=== PATIENT | male | born 1985 | race Caucasian/White ===

== ENCOUNTER 2020-07-24 07:18 | Emergency (ER) | payer OTHER ==
[2020-07-24 07:23] VITALS: BP 143/92; PULSE 88; RESP 18; TEMP 98
[2020-07-24] MEDS ORDERED: LIDOCAINE 1% INJ 10MG/ML (20 ML MDV) SQ ONE (07:28)
[2020-07-24] MEDS ORDERED: DIPH,PERTUS(ACELL)TETVAC-LF 0.5 ML VIAL IM ONE (07:45)
[2020-07-24] MEDS ORDERED: LIDOCAINE 1%-EPI 1:100,000 20 ML VIAL SQ STA (07:45)
--- NOTE | 2020-07-24 07:48 | ED ---
General Adult HPI - General Chief complaint: Wound/Laceration Stated complaint: [facility], arm injury Time Seen by Provider: 07/24/20 07:26 Source: patient, RN notes reviewed Mode of arrival: ambulatory Limitations: no limitations - History of Present Illness Initial comments: 35-year-old male presents to the emergency room for chief amenable laceration noted to the left inner forearm. Patient reports that he was trying to shave (almost of metal at work with a razor blade when he cut his arm. Patient denies any pulsatile bleeding. Patient denies any numbness or tingling in the left arm. Denies any difficulty moving his left arm. Patient states tetanus is likely not up-to-date.Patient has no other complaints at this time including shortness of breath, chest pain, abdominal pain, nausea or vomiting, headache, or visual changes. - Related Data Allergies Allergy/AdvReac Type Severity Reaction Status Date / Time Penicillins Allergy Unknown Verified 07/24/20 07:23 Review of Systems ROS Statement: Those systems with pertinent positive or pertinent negative responses have been documented in the HPI. ROS Other: All systems not noted in ROS Statement are negative. Past Medical History Past Medical History: No Reported History History of Any Multi-Drug Resistant Organisms: None Reported Past Surgical History: No Surgical Hx Reported Past Psychological History: No Psychological Hx Reported Smoking Status: Never smoker Past Alcohol Use History: Occasional Past Drug Use History: None Reported General Exam Limitations: no limitations General appearance: alert, in no apparent distress Head exam: Present: atraumatic, normocephalic, normal inspection Eye exam: Present: normal appearance, PERRL, EOMI. Absent: scleral icterus, conjunctival injection, periorbital swelling ENT exam: Present: normal exam, mucous membranes moist Neck exam: Present: normal inspection, full ROM. Absent: tenderness, meningismus, lymphadenopathy Respiratory exam: Present: normal lung sounds bilaterally. Absent: respiratory distress, wheezes, rales, rhonchi, stridor Cardiovascular Exam: Present: regular rate, normal rhythm, normal heart sounds. Absent: systolic murmur, diastolic murmur, rubs, gallop, clicks Extremities exam: Present: full ROM (Full range of motion noted throughout the left hand.), normal capillary refill (Capillary refill less than 2 seconds in the left upper extremity. Radial pulse 2+.), other (Patient has a 1.5 cm laceration noted to the mid inner forearm.) Course Vital Signs 07/24/20 07:20 Temperature 98.0 F Pulse Rate 88 Respiratory 18 Rate Blood Pressure 143/92 O2 Sat by Pulse 100 Oximetry Procedures - Laceration Laceration #1 Consent Obtained: verbal consent Indication: laceration Site: upper extremity Size (cm): 1 Description: linear Depth: simple, single layer Anesthetic Used: lidocaine 1%, with epi Anesthesia Technique: local infiltration Amount (mls): 4 Pre-repair: wound explored (No evidence of foreign bodies), irrigated extensively (Saline pressure irrigation), deep structures intact Type of Sutures: nylon Size of Sutures: 4-0 (3), 5-0 Technique: simple, interrupted Patient Tolerated Procedure: well, no complications Medical Decision Making - Medical Decision Making Laceration was irrigated thoroughly. It was explored, no evidence of deep structure injury or foreign body. Full range of motion in the arm. Radial pulses are 2+. No active bleeding at this time. No history of pulsatile bleeding. Wound was repaired and approximated using 3 simple interrupted sutures. Discussed care instructions are discussed following up with primary care. Discussed returning here in 7-10 days for suture removal and monitoring for signs of infection. Disposition Clinical Impression: Laceration Disposition: HOME SELF-CARE Condition: Good Instructions (If sedation given, give patient instructions): Care For Your Stitches (ED), Laceration (ED) Additional Instructions: Please keep the area dry for the first 24 hours. After that apply antibiotic ointment twice daily and keep covered for 3-5 days. Monitor for signs of infection such as spreading or streaking redness, drainage, or fever. If these occur return to the emergency room. Otherwise return to the emergency room in 7-10 days for suture removal and follow-up with primary care for a recheck. Is patient prescribed a controlled substance at d/c from ED?: No Referrals: Lashanda West MD [REFERRING] - 1-2 days Time of Disposition: 08:08
[2020-07-24] MEDS ORDERED: BACITRACIN OINT 1 EACH PACKET TOPICAL STA (08:07)
== END 2020-07-24 08:19 | disposition home or self-care (01) ==
LOC: EC 07:18
DX: S51.812A Laceration without foreign body of left forearm, initial encounter (principal); Z23 Encounter for immunization; Z88.0 Allergy status to penicillin; W26.8XXA Contact with other sharp object(s), not elsewhere classified, initial encounter; Y92.69 Other specified industrial and construction area as the place of occurrence of the external cause; Y99.0 Civilian activity done for income or pay
CPT/HCPCS: 12001; 90471; 90715; 99282

== ENCOUNTER 2021-05-26 04:43 | Emergency (ER) | payer OTHER ==
[2021-05-26 04:53] VITALS: RESP 18
--- NOTE | 2021-05-26 04:58 | ED ---
Fall HPI - General Chief Complaint: Fall Stated Complaint: Side & Back Injury - [facility] Time Seen by Provider: 05/26/21 04:44 Source: patient, RN notes reviewed, old records reviewed Mode of arrival: ambulatory - History of Present Illness Initial Comments: There is a 35-year-old male to the ER status post fall. 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 Patient resents about 2 hours later with the pain being persistent. No shortness of breath he has urinated with no blood and normal bowel movements. 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 ROS Other: All systems not noted in ROS Statement are negative. Past Medical History Past Medical History: No Reported History History of Any Multi-Drug Resistant Organisms: None Reported Past Surgical History: No Surgical Hx Reported Past Psychological History: No Psychological Hx Reported Smoking Status: Never smoker Past Alcohol Use History: Occasional Past Drug Use History: None Reported General Exam Limitations: no limitations General appearance: alert, in no apparent distress Head exam: Present: atraumatic, normocephalic, normal inspection Eye exam: Present: normal appearance, PERRL, EOMI. Absent: scleral icterus, conjunctival injection, periorbital swelling ENT exam: Present: normal exam, mucous membranes moist Neck exam: Present: normal inspection. Absent: tenderness, meningismus, lymphadenopathy Respiratory exam: Present: normal lung sounds bilaterally. Absent: respiratory distress, wheezes, rales, rhonchi, stridor Cardiovascular Exam: Present: regular rate, normal rhythm, normal heart sounds, other (Patient does have some anterior chest wall bruising as well as chest bruising across right ribs cage). Absent: systolic murmur, diastolic murmur, rubs, gallop, clicks GI/Abdominal exam: Present: soft, normal bowel sounds. Absent: distended, tenderness, guarding, rebound, rigid Extremities exam: Present: normal inspection, full ROM, normal capillary refill. Absent: tenderness, pedal edema, joint swelling, calf tenderness Back exam: Present: normal inspection Neurological exam: Present: alert, oriented X3, CN II-XII intact Psychiatric exam: Present: normal affect, normal mood Skin exam: Present: warm, dry, intact, normal color. Absent: rash Course Vital Signs 05/26/21 05/26/21 04:49 05:53 Temperature 98.1 F 98 F Pulse Rate 87 78 Respiratory 18 18 Rate Blood Pressure 142/91 133/77 O2 Sat by Pulse 100 98 Oximetry - Reevaluation(s) Reevaluation #1: Medical records reviewed Patient's pain is resolved. Patient is in no acute distress Patient informed results and questions answered Medical Decision Making - Medical Decision Making 35 male who presents with a work related injury. No significant somatic injury noted. Pain is well-controlled and patient can be discharged home - Lab Data Lab Results 05/26/21 Range/Units 05:08 Urine Color Yellow Urine Appearance Clear (Clear) Urine pH 6.5 (5.0-8.0) Ur Specific [place] 1.028 (1.001-1.035) Urine Protein Trace H (Negative) Urine Glucose (UA) Negative (Negative) Urine Ketones Negative (Negative) Urine Blood Negative (Negative) Urine Nitrite Negative (Negative) Urine Bilirubin Negative (Negative) Urine Urobilinogen 2.0 (<2.0) mg/dL Ur Leukocyte Esterase Negative (Negative) - Radiology Data Radiology results: report reviewed (Chest x-ray and right rib x-rays negative for traumatic injury), image reviewed Disposition Clinical Impression: Fall, Rib pain on right side Disposition: HOME SELF-CARE Condition: Good Instructions (If sedation given, give patient instructions): Rib Contusion (ED) Is patient prescribed a controlled substance at d/c from ED?: No Referrals: None,Stated [Primary Care Provider] - 1-2 days
[2021-05-26] MEDS ORDERED: IBUPROFEN 800 MG TAB PO STA (05:04)
[2021-05-26] MEDS ORDERED: ACETAMINOPHEN TAB 500 MG TAB PO STA (05:04)
--- NOTE | 2021-05-26 05:32 | XR ---
EXAMINATION TYPE: XR ribs RT w pa chest xray DATE OF EXAM: 05/26/2021 COMPARISON: NONE HISTORY: Right rib pain TECHNIQUE: 5 views FINDINGS: Heart and mediastinum are normal. Lungs are clear of infiltrate. The right ribs appear inta ct. There is no pleural effusion or pneumothorax. IMPRESSION: Normal chest. Normal right ribs.
[2021-05-26 05:37] LABS: Appearance,Urine Clear (Clear); Bilirubin,Urine Negative (Negative); Blood,Urine Negative (Negative); Color,Urine Yellow; Glucose,Urine (UA) Negative (Negative); Ketones,Urine Negative (Negative); Leukocyte Esterase,Urine Negative (Negative); Nitrite,Urine Negative (Negative); PH, Urine 6.5 (5.0-8.0); Protein,Urine Trace (Negative); Specific Gravity,Urine 1.028 (1.001-1.035)
[2021-05-26 05:54] VITALS: BP 133/77; PULSE 78; TEMP 98
== END 2021-05-26 05:54 | disposition home or self-care (01) ==
LOC: EC 04:43
DX: S20.211A Contusion of right front wall of thorax, initial encounter (principal); Z88.0 Allergy status to penicillin; W01.198A Fall on same level from slipping, tripping and stumbling with subsequent striking against other object, initial encounter; Y92.009 Unspecified place in unspecified non-institutional (private) residence as the place of occurrence of the external cause; Y99.0 Civilian activity done for income or pay
CPT/HCPCS: 81003; 82075; 99284

== ENCOUNTER → 2021-06-04 | Outpatient (CLI) | payer OTHER ==
--- NOTE | 2021-06-05 09:05 | XR ---
EXAMINATION TYPE: XR chest 2V DATE OF EXAM: 06/04/2021 COMPARISON: NONE HISTORY: Chest pain TECHNIQUE: Frontal and lateral views of the chest are obtained. FINDINGS: There is no focal air space opacity. No evidence for pneumothorax. No pleural effusion. The cardiac silhouette size is within normal limits. The osseous structures are grossly intact. IMPRESSION: 1. No acute cardiopulmonary process.
--- NOTE | 2021-06-05 09:08 | XR ---
EXAMINATION TYPE: XR ribs RT DATE OF EXAM: 06/04/2021 CLINICAL HISTORY: Pain, Fall Four views of the ribs demonstrate fractures involving right rib #10 anteriorly possibly #9. No addit ional rib fractures seen. Visualized lungs are clear. No evidence for pneumothorax. IMPRESSION: 1. Fracture right rib 10 and possibly #9.
== END | disposition home or self-care (01) ==
LOC: RADXRMAIN 17:02
PROVIDERS: ATTEND Emergency Medicine
DX: S22.31XA Fracture of one rib, right side, initial encounter for closed fracture (principal); X58.XXXA Exposure to other specified factors, initial encounter
CPT/HCPCS: 71046

== ENCOUNTER 2024-11-22 18:16 | Emergency (ER) | payer OTHER ==
[2024-11-22 18:27] VITALS: RESP 18
--- NOTE | 2024-11-22 18:40 | ED ---
Eye Problem HPI - General Chief complaint: Eye Problems Stated complaint: Metal in Eye- Work Related Time Seen by Provider: 11/22/24 18:40 Source: patient Mode of arrival: ambulatory Limitations: no limitations - History of Present Illness Initial comments: 39-year-old male presented to ER for evaluation of right eye irritation. Patient states he was at work this evening and felt what he believed was a hair in his eye. He began to rub his eye without improvement. He states he went to the bathroom to look in his eye and noted something "sticking out of it". He began to flush" his eye and dislodge the foreign body. He was able to remove this from his eye with his finger. He states he still felt a foreign body sensation to his eye which prompted him to come to the ER for evaluation. He denies any known injury or entrance of foreign body. He denies any double blurry vision or painful extraocular motions. Tetanus status unknown. Patient does not wear contacts. 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 He has no other complaints at this time. - Related Data Allergies Allergy/AdvReac Type Severity Reaction Status Date / Time Penicillins Allergy Unknown Verified 11/22/24 18:24 Review of Systems ROS Statement: Those systems with pertinent positive or pertinent negative responses have been documented in the HPI. ROS Other: All systems not noted in ROS Statement are negative. Past Medical History Past Medical History: No Reported History History of Any Multi-Drug Resistant Organisms: None Reported Past Surgical History: No Surgical Hx Reported Past Psychological History: No Psychological Hx Reported Smoking Status: Never smoker Past Alcohol Use History: Occasional Past Drug Use History: None Reported General Exam Limitations: no limitations General appearance: alert, in no apparent distress Eye exam: Present: normal appearance, PERRL, EOMI (Nonpainful). Absent: scleral icterus, conjunctival injection, periorbital swelling Pupils: Present: normal accommodation, other (Rust ring noted to right lateral iris. Lid eversion negative for foreign body.) Respiratory exam: Present: normal lung sounds bilaterally. Absent: respiratory distress, wheezes, rales, rhonchi, stridor Cardiovascular Exam: Present: regular rate, normal rhythm, normal heart sounds. Absent: systolic murmur, diastolic murmur, rubs, gallop, clicks Neurological exam: Present: alert, oriented X3, CN II-XII intact Skin exam: Present: warm, dry, intact, normal color. Absent: rash Course Vital Signs 11/22/24 18:25 Temperature 97.9 F Pulse Rate 93 Respiratory 18 Rate Blood Pressure 147/80 O2 Sat by Pulse 100 Oximetry - Reevaluation(s) Reevaluation #1: 11/22/24 19:10 IOP OD 23 11/22/24 19:15 Visual acuity: Right 20/25 Left 20/20 Procedures - Forgein Body Removal Eye Site: Right Location in eye(s): lateral iris Anesthetic Used: Proparacaine Eye Exam Technique: Garcia Lamp Foreign Body Suspected: Metal Forgein Body Removal Technique: Algerbrush Remaining Debris: No Patient Tolerated: well Medical Decision Making - Medical Decision Making Was pt. sent in by a medical professional or institution (, PA, COMPUTER SYSTEMS SECURITY ANALYST, urgent care, hospital, or assisted...) When possible be specific @ -No Did you speak to anyone other than the patient for history (EMS, parent, family, police, friend...)? What history was obtained from this source @ -No Did you review nursing and triage notes (agree or disagree)? Why? @ -I reviewed and agree with nursing and triage notes Were old charts reviewed (outside hosp., previous admission, EMS record, old EKG, old radiological studies, urgent care reports/EKG's, assisted records)? Report findings @ -No old charts were reviewed Differential Diagnosis (chest pain, altered mental status, abdominal pain women, abdominal pain men, vaginal bleeding, weakness, fever, dyspnea, syncope, headache, dizziness, GI bleed, back pain, seizure, CVA, palpatations, mental health, musculoskeletal)? @ -Corneal abrasion, ocular foreign body, hyphema, conjunctivitis, globe rupture, acute angle-closure glaucoma this list is not meant to be all-inclusive EKG interpreted by me (3pts min.). @ -None done X-rays interpreted by me (1pt min.). @ -None done CT interpreted by me (1pt min.). @ -None done U/S interpreted by me (1pt. min.). @ -None done What testing was considered but not performed or refused? (CT, X-rays, U/S, labs)? Why? @ -None What meds were considered but not given or refused? Why? @ -None Did you discuss the management of the patient with other professionals (professionals i.e. DrJorge, PA, COMPUTER SYSTEMS SECURITY ANALYST, lab, RT, psych nurse, social human services assistants, computer aided design drafter, teacher, chief credit officer, immigration case manager)? Give summary @ -No Was smoking cessation discussed for >3mins.? @ -No Was critical care preformed (if so, how long)? @ -No Were there social determinants of health that impacted care today? How? (Homelessness, low income, unemployed, alcoholism, drug addiction, transportation, low edu. Level, literacy, decrease access to med. care, fpc, rehab)? @ -No Was there de-escalation of care discussed even if they declined (Discuss DNR or withdrawal of care, Hospice)? DNR status @ -No What co-morbidities impacted this encounter? (DM, HTN, Smoking, COPD, CAD, Cancer, CVA, ARF, Chemo, Hep., AIDS, mental health diagnosis, sleep apnea, morbid obesity)? @ -None Was patient admitted / discharged? Hospital course, mention meds given and route, prescriptions, significant lab abnormalities, going to OR and other pertinent info. @ -[Discharge. 39-year-old male presented to ER for evaluation of right eye irritation. Upon examination, there is a rust ring noted to right lateral iris. Pupils are equal round and reactive with painless extraocular motions. Fluorescein stain negative for acute uptake. IOP OD 23. Visual acuity OD 20/25, OS 20/20. Rust ring removed with algerbrush, see note above. Tetanus updated. Patient started on Tobrex eyedrops. Dosing instructions reviewed with patient. Patient is stable for discharge. I advised him to follow-up closely with PCP and ophthalmology for further evaluation. Strict return parameters discussed. Patient discharged in stable condition with follow-up to PCP or ophthalmology. Patient verbally expressed understanding and agreement with care plan. Case discussed with ED attending, Dr. Sainz. Undiagnosed new problem with uncertain prognosis? @ -No Drug Therapy requiring intensive monitoring for toxicity (Heparin, Nitro, Insulin, Cardizem)? @ -No Were any procedures done? @ -Yes Diagnosis/symptom? @ -Corneal rust ring Acute, or Chronic, or Acute on Chronic? @ -Acute Uncomplicated (without systemic symptoms) or Complicated (systemic symptoms)? @ -Uncomplicated Side effects of treatment? @ -No Exacerbation, Progression, or Severe Exacerbation? @ -No Poses a threat to life or bodily function? How? (Chest pain, [place], [place], pneumonia, PE, COPD, DKA, ARF, appy, cholecystitis, CVA, Diverticulitis, Homicidal, Suicidal, threat to staff... and all critical care pts) @ -No Disposition Clinical Impression: Corneal rust ring Disposition: HOME SELF-CARE Condition: Stable Instructions (If sedation given, give patient instructions): Eye Foreign Body (ED) Additional Instructions: Use Tobrex eyedrops 2 drops in right eye 4 times daily for 5 days. Follow-up with PCP and ophthalmology. Return to the ER for new or worsening concerns. Is patient prescribed a controlled substance at d/c from ED?: No Referrals: None,Stated [Primary Care Provider] - 1-2 days Jose Eduardo Kent MD [STAFF PHYSICIAN] - 1-2 days Forms: Area PCPs Time of Disposition: 19:09
[2024-11-22] MEDS: DIPH,PERTUS(ACELL)TETVAC-LF 0.5 ML VIAL IM ONE (18:47)
[2024-11-22] MEDS: PROPARACAINE 0.5% OPHTH DROPS 15 ML BTL RIGHT EYE STA (18:48)
[2024-11-22] MEDS: TOBRAMYCIN 0.3% OPHTH DROPS 5 ML BTL RIGHT EYE STA (19:57)
[2024-11-22 20:14] VITALS: BP 130/78; PULSE 89; TEMP 98
== END 2024-11-22 20:14 | disposition home or self-care (01) ==
LOC: EC 18:16
DX: T15.01XA Foreign body in cornea, right eye, initial encounter (principal); Z88.0 Allergy status to penicillin; Z23 Encounter for immunization; W44.9XXA Unspecified foreign body entering into or through a natural orifice, initial encounter
CPT/HCPCS: 10120; 90471; 90715; 99283